=== PATIENT | male | born 1960 | race African-American/Black ===

== ENCOUNTER 2021-09-24 12:31 | Emergency (ER) | payer MEDICAID, OTHER ==
[~2021-09-24] VITALS: Ht 172.7 cm; Wt 107.0 kg
[~2021-09-24 12:31] MED LIST: INSULIN
[2021-09-24] MEDS ORDERED: IBUPROFEN 600MG TABLET PO STA (13:28)
[2021-09-24 14:11] VITALS: BP 144/65
[2021-09-24 14:46] LABS: BASOPHILS % 0.8 % (0.0-2.0); EOSINOPHILS % 4.2 % (0.0-5.0); HEMATOCRIT. 40.9 % (42.0-52.0); HEMOGLOBIN. 13.9 g/dL (14.0-18.0); LYMPHOCYTES % 27.9 % (20.0-50.0); MEAN CORPUSCULAR HEMOGLOBIN 30.1 pg (28.0-32.0); MEAN CORPUSCULAR VOLUME 88.8 fL (80.0-94.0); MEAN PLATELET VOLUME 8.5 fl (7.4-10.4); MONOCYTES % 5.8 % (2.0-8.0); NEUTROPHILS % 61.3 % (40.0-76.0); PLATELET 241 x1000/uL (130-400); RED BLOOD CELL COUNT 4.61 mill/uL (4.7-6.1); RED CELL DISTRIBUTION WIDTH 14.8 % (11.6-14.6)
[2021-09-24 15:04] LABS: CHLORIDE 107 mEq/L (98-107)
[2021-09-24] MEDS ORDERED: GABA-532 PO (15:26)
[2021-09-24] MEDS ORDERED: NAPR-681 PO (15:26)
== END 2021-09-24 16:07 | disposition home or self-care (01) ==
LOC: ER 12:31
DX: E11.40 Type 2 diabetes mellitus with diabetic neuropathy, unspecified (principal); R03.0 Elevated blood-pressure reading, without diagnosis of hypertension
CPT/HCPCS: 36415; 80048; 82962; 85025; 99283

== ENCOUNTER 2023-04-15 11:38 | Emergency (ER) | payer OTHER, MEDICAID ==
[~2023-04-15] VITALS: Ht 175.3 cm; Wt 100.0 kg
[~2023-04-15 11:38] MED LIST changes: +GABA-532 PO; +NAPR-681 PO
[2023-04-15 11:46] VITALS: O2SAT 98
[2023-04-15] MEDS ORDERED: BENZ200C52 MT (13:44)
[2023-04-15] MEDS ORDERED: DICL100G58 TP (13:44)
[2023-04-15 14:39] VITALS: BP 136/88; PULSE 85; RESP 18; TEMP 98.5
== END 2023-04-15 15:00 | disposition home or self-care (01) ==
LOC: ER 11:38
DX: R05.9 Cough, unspecified (principal); G62.9 Polyneuropathy, unspecified; E11.9 Type 2 diabetes mellitus without complications
CPT/HCPCS: 71045; 99283